=== PATIENT | female | born 1935 | race Caucasian/White ===

== ENCOUNTER → 2017-11-25 | Outpatient (CLI) | payer MEDICARE, BC ==
[~2017-11-25] MED LIST: ADULT LOW DOSE81 MG; ASPIRIN325; BACTRIM DS TAB1 EACH PO; CALCIUM; CALCIUM 600 +1 EAC1 PO; CATAPRES-TTS 20.2 MG TD; CATAPRES0.2 MG PO; CEFUROXIME500 MG PO; CELEXA 20 MG TA20 M1 PO; CENTRUM SILVER1 EAC1 PO; CENTRUM SILVER1 EAC4 PO; CLONIDINE PO; DILT-XR120 MG PO; EQL GLUCOSAMIN PO; EVISTA; EVISTA PO; FISH OIL 1,2001 EAC4; FLEET ENEMA118 ML RC; FLEX-A-MIN; FOLIC ACID 40400 MC1; FOLIC ACID 40400 MC1 PO; FOLIC ACID1 MG PO; HYDRALAZINE 10M10 MG PO; HYDROCHLOROTH12.5 M1 PO; IBUPROFEN 800800 MG PO; K-DUR10 ME1; LIPEX10 MG PO; LISINOPRIL20 MG PO; LMX 430 GM TRANSDERM; MAGNESIUM250 M1 PO; MELOXICAM7.5 MG; MELOXICAM7.5 MG PO; MIRALAX17 GM PO; MIRALAX255 GM PO; MOBIC; NAMENDA; NAMENDA 10 MG T10 MG PO; NAMENDA XR28 MG PO; NORCO 5-325 TA1 EACH PO; PAROXETINE HCL20 MG PO; PHENERGAN 25 MG25 M1 PO; POTASSIUM20 PO; PRADAXA150 MG PO; PRILOSEC40 MG PO; PROPOXY-N-APAP1 EACH PO; SENNA LAXATIVE25 MG PO; TEKTURNA HCT 31 EACH PO; VICODIN 5-5001 EACH PO; VITAMIN E1000 UNI1 PO; VITAMIN E400 UNIT PO; [UNRECOGNIZED DRUG - OTHER] PO
== END ==
LOC: M.ULTRA 10:46
DX: M17.12 Unilateral primary osteoarthritis, left knee (principal); M79.89 Other specified soft tissue disorders; L03.116 Cellulitis of left lower limb; R60.0 Localized edema

== ENCOUNTER 2017-12-27 11:45 | Inpatient (IN) | payer MEDICARE, BC ==
[~2017-12-27] VITALS: Ht 165.1 cm; Wt 56.2 kg
[~2017-12-27 11:45] MED LIST changes: -HYDRALAZINE 10M10 MG PO; -HYDROCHLOROTH12.5 M1 PO; -LMX 430 GM TRANSDERM
[2017-12-27 14:30] VITALS: BP 89/55; BP 98/51
[2017-12-27 15:07] LABS: HEMATOCRIT 25.3 % (37.0-47.0); HEMOGLOBIN 8.5 gm/dL (12.0-15.0); MCH 32.1 pg (26.0-34.0); MCHC 33.6 g/dL (28.0-37.0); MCV 95.4 fL (80.0-100.0); MPV 8.1 fl. (7.2-11.1); NUCLEATED RBCS 0 /100WBC; PLATELET COUNT* 214 thou/uL (150-400); RBC 2.65 mil/uL (4.20-5.00); RDW-CV 13.4 % (10.5-14.5); WBC 10.7 thou/uL (4.0-11.0)
[2017-12-27 15:15] LABS: CALCIUM 8.7 mg/dL (8.5-10.1); CREATININE 1.1 mg/dL (0.6-1.3); MAGNESIUM 2.3 mg/dL (1.8-2.4); POTASSIUM 3.8 mmol/L (3.5-5.1)
[2017-12-27 16:18] VITALS: BP 92/48
[2017-12-27 16:19] LABS: ABSOLUTE BASOPHILS 0.1 thou/uL (0.0-0.2); ABSOLUTE LYMPHOCYTES 0.3 thou/uL (0.8-5.3); ABSOLUTE MONOCYTES 0.7 thou/uL (0.0-1.2); ABSOLUTE NEUTROPHILS 9.5 thou/uL (1.6-8.1); PLATELET ESTIMATE ADEQUATE; TOXIC GRANULATION Occasional
--- NOTE | 2017-12-27 16:48 | EKG ---
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: : [id number] Requested By: Mario Vargas Order Number: [id number] Reading MD: Rolly Varma Measurements Intervals [place] Rate: 69 P: 67 MT: 155 QRS: -1 QRSD: 86 T: 42 QT: 400 QTc: 429 Interpretive Statements Sinus rhythm Left ventricular hypertrophy Compared to ECG 11/27/2016 20:32:51 Left ventricular hypertrophy now present Left-axis deviation no longer present Electronically Signed On 12-27-2017 16:48:38 CDT by Rolly Varma [email or web address] <ELECTRONICALLY SIGNED> By: Rolly Varma MD, [facility] 12/27/17 1648 1514 1514 Rolly Varma MD, [facility] /EPI
[2017-12-27 20:15] VITALS: BP 120/63
[2017-12-27 21:13] LABS: URINE BILIRUBIN NEGATIVE (Negative); URINE BLOOD NEGATIVE (Negative); URINE CLARITY CLEAR; URINE COLOR YELLOW; URINE GLUCOSE-RANDOM NEGATIVE (Negative); URINE KETONES NEGATIVE (Negative); URINE LEUKOCYTES-REFLEX NEGATIVE (Negative); URINE NITRITE-REFLEX NEGATIVE (Negative); URINE PROTEIN NEGATIVE (Negative); URINE SPECIFIC GRAVITY 1.025 (1.005-1.030); URINE UROBILINOGEN 0.2 E.U./dl (0.2-1.0)
[2017-12-28 00:12] VITALS: BP 154/81
[2017-12-28 04:12] VITALS: BP 170/82
[2017-12-28 07:45] VITALS: BP 172/79
[2017-12-28 12:00] VITALS: BP 127/88
[2017-12-28 13:19] LABS: % SATURATION 14 % (20-39); IRON 32 ug/dL (50-175)
[2017-12-28 17:09] VITALS: BP 179/98
[2017-12-28 20:00] VITALS: BP 168/63
[2017-12-29] VITALS: BP 176/69
[2017-12-29 04:18] VITALS: BP 129/74
[2017-12-29 08:00] VITALS: BP 146/86
[2017-12-29 16:00] VITALS: BP 199/112
[2017-12-29 17:10] VITALS: BP 186/107
[2017-12-29 20:00] VITALS: BP 176/99
[2017-12-30] VITALS (17 sets, daily range): BP systolic 130–213; BP diastolic 11–132
[2017-12-30 08:13] LABS: ABSOLUTE BASOPHILS 0.1 thou/uL (0.0-0.2); ABSOLUTE EOSINOPHILS 0.1 thou/uL (0.0-0.7); ABSOLUTE LYMPHOCYTES 0.4 thou/uL (0.8-5.3); ABSOLUTE MONOCYTES 0.6 thou/uL (0.0-1.2); ABSOLUTE NEUTROPHILS 14.4 thou/uL (1.6-8.1); BASOPHILS 0.4 %; EOSINOPHILS 0.8 %; HEMATOCRIT 33.4 % (37.0-47.0); LYMPHOCYTES 2.3 %; MCH 31.9 pg (26.0-34.0); MCHC 32.8 g/dL (28.0-37.0); MCV 97.1 fL (80.0-100.0); MONOCYTES 3.9 %; MPV 10.2 fl. (7.2-11.1); NUCLEATED RBCS 0 /100WBC; POLYS 92.6 %; RBC 3.44 mil/uL (4.20-5.00); RDW-CV 14.3 % (10.5-14.5); WBC 15.6 thou/uL (4.0-11.0)
[2017-12-30 08:24] LABS: PLATELET COUNT* 360 thou/uL (150-400)
[2017-12-30 08:32] LABS: ALBUMIN 3.4 g/dL (3.4-5.0); CALCIUM 9.1 mg/dL (8.5-10.1); CREATININE 0.6 mg/dL (0.6-1.3); MAGNESIUM 1.9 mg/dL (1.8-2.4); TOTAL PROTEIN 7.6 g/dL (6.4-8.2)
[2017-12-30 08:34] LABS: POTASSIUM 2.9 mmol/L (3.5-5.1)
[2017-12-30 10:43] LABS: URINE BLOOD 3+ (Negative); URINE CLARITY CLEAR; URINE COLOR YELLOW; URINE GLUCOSE-RANDOM 1+ (Negative); URINE KETONES 2+ (Negative); URINE PROTEIN 1+ (Negative); URINE UROBILINOGEN >= 8.0 E.U./dl (0.2-1.0)
[2017-12-30 10:46] LABS: URINE BILIRUBIN 1+ (Negative); URINE LEUKOCYTES-REFLEX 2+ (Negative); URINE NITRITE-REFLEX POSITIVE (Negative)
[2017-12-30 10:47] LABS: BACTERIA-REFLEX >30 Many /HPF (None Seen); ICTOTEST (BILI CONFIRMATORY) ND (Negative); MUCUS 4-6 Moderate strn/LPF (None Seen); SQUAMOUS 4-10 Moderate /LPF (0-3); URINE WBC-REFLEX >25 Many /HPF (0-5)
[2017-12-30 10:48] LABS: CASTS None Seen /LPF (None Seen); TRIPLE PHOSPHATE CRYSTALS 4-10 Moderate /LPF (None Seen)
[2017-12-30] MEDS ORDERED: PRADAXA150 MG PO (11:21)
[2017-12-30] MEDS ORDERED: HYDRALAZINE 10M10 MG PO (11:22)
[2017-12-30] MEDS ORDERED: LMX 430 GM TRANSDERM (11:26)
[2017-12-30] MEDS ORDERED: MIRALAX17 GM PO (11:28)
[2017-12-30] MEDS ORDERED: LISINOPRIL20 MG PO (11:29)
[2017-12-30] MEDS ORDERED: HYDROCHLOROTH12.5 M1 PO (11:29)
[2017-12-30 15:16] LABS: URINE BILIRUBIN NEGATIVE (Negative); URINE BLOOD TRACE (Negative); URINE CLARITY CLEAR; URINE COLOR YELLOW; URINE GLUCOSE-RANDOM 1+ (Negative); URINE KETONES 1+ (Negative); URINE LEUKOCYTES NEGATIVE (Negative); URINE NITRITE NEGATIVE (Negative); URINE PROTEIN 1+ (Negative); URINE UROBILINOGEN 0.2 E.U./dl (0.2-1.0)
[2017-12-30 15:30] LABS: AMORPHOUS URATES Moderate /LPF (None Seen); BACTERIA None Seen /HPF (None Seen); CASTS None Seen /LPF (None Seen); SQUAMOUS >10 Many /LPF (0-3); URINE RBC 0-2 Rare /HPF (0-2); URINE WBC None Seen /HPF (0-5)
[2017-12-30 18:56] LABS: HEMOGLOBIN 11.6 gm/dL (12.0-15.0); MCH 31.2 pg (26.0-34.0); MCHC 32.1 g/dL (28.0-37.0); MCV 97.2 fL (80.0-100.0); MPV 8.9 fl. (7.2-11.1); RBC 3.7 mil/uL (4.20-5.00); RDW-CV 14.1 % (10.5-14.5); WBC 13.1 thou/uL (4.0-11.0)
[2017-12-30 19:44] LABS: BE 2.5 mmol/L (-2 to +3); HCO3 24.1 mmol/L (22.0-26.0); PCO2 28.1 mmHg (35.0-45.0); pH 7.551 (7.340-7.450)
[2017-12-30 19:45] LABS: PO2 289.7 mmHg (75.0-100.0)
[2017-12-30 19:45] LABS: APTT 27.1 Seconds (25.0-31.3); PROTIME 10.5 Seconds (9.20-11.50)
[2017-12-31] VITALS (29 sets, daily range): BP systolic 104–200; BP diastolic 58–97
[2017-12-31 04:48] LABS: HEMOGLOBIN 10.8 gm/dL (12.0-15.0); MCH 31.6 pg (26.0-34.0); MCHC 32.7 g/dL (28.0-37.0); MCV 96.7 fL (80.0-100.0); MPV 8.3 fl. (7.2-11.1); RBC 3.42 mil/uL (4.20-5.00); RDW-CV 14.1 % (10.5-14.5); WBC 18.5 thou/uL (4.0-11.0)
[2017-12-31 05:43] LABS: ALBUMIN 3.3 g/dL (3.4-5.0); CALCIUM 9.5 mg/dL (8.5-10.1); CREATININE 0.9 mg/dL (0.6-1.3); MAGNESIUM 2.6 mg/dL (1.8-2.4); TOTAL BILIRUBIN 0.8 mg/dL (<0.1-1.0); TOTAL PROTEIN 6.8 g/dL (6.4-8.2)
[2017-12-31 06:10] LABS: POTASSIUM 7.7 mmol/L (3.5-5.1)
[2017-12-31 07:38] LABS: BE 1.8 mmol/L (-2 to +3); HCO3 25.6 mmol/L (22.0-26.0); PCO2 37.3 mmHg (35.0-45.0); pH 7.455 (7.340-7.450)
[2017-12-31 07:39] LABS: PO2 202.1 mmHg (75.0-100.0)
[2017-12-31 11:29] LABS: BE 2.2 mmol/L (-2 to +3); HCO3 27.5 mmol/L (22.0-26.0); PCO2 45.7 mmHg (35.0-45.0); PO2 92.8 mmHg (75.0-100.0); pH 7.397 (7.340-7.450)
[2018-01-01] VITALS (24 sets, daily range): BP systolic 110–178; BP diastolic 58–91
[2018-01-01 04:16] LABS: HEMATOCRIT 32.6 % (37.0-47.0); HEMOGLOBIN 10.4 gm/dL (12.0-15.0); MCH 31.2 pg (26.0-34.0); MCHC 31.8 g/dL (28.0-37.0); MCV 98.3 fL (80.0-100.0); MPV 8.3 fl. (7.2-11.1); NUCLEATED RBCS 0 /100WBC; PLATELET COUNT* 339 thou/uL (150-400); RBC 3.32 mil/uL (4.20-5.00); RDW-CV 14.6 % (10.5-14.5); WBC 31.5 thou/uL (4.0-11.0)
[2018-01-01 04:46] LABS: ALBUMIN 2.9 g/dL (3.4-5.0); CALCIUM 9.2 mg/dL (8.5-10.1); CREATININE 0.9 mg/dL (0.6-1.3); POTASSIUM 4.8 mmol/L (3.5-5.1); TOTAL BILIRUBIN 0.6 mg/dL (<0.1-1.0); TOTAL PROTEIN 6.8 g/dL (6.4-8.2)
[2018-01-01 05:32] LABS: ABSOLUTE LYMPHOCYTES 0.3 thou/uL (0.8-5.3); ABSOLUTE MONOCYTES 1.3 thou/uL (0.0-1.2); ABSOLUTE NEUTROPHILS 29.9 thou/uL (1.6-8.1); ANISOCYTOSIS 1+; PLATELET ESTIMATE ADEQUATE; POIKILOCYTOSIS 1+
--- NOTE | 2018-01-01 12:59 | 2DMMODE ---
[place] [address] 2 D/M-MODE ECHOCARDIOGRAM Name: CECILIA ALDANA Room: [address] IN [facility]#: [id number] Admission: 12/27/17 Attend Phys: Mario Vargas, Discharge: Date of : 37 Date of Service: 01/01/18 1259 Report #: [id number] THIS REPORT FOR: //name// APPROVED REPORT Study performed: 01/01/2018 10:54:33 EXAM: Comprehensive 2D, Doppler, and color-flow Echocardiogram Patient Location: In-Patient Room #: [facility] Status: routine BSA: 1.61 HR: 120 bpm BP: 118/74 mmHg Rhythm: NSR Other Information Study Quality: Good Indications Atrial Fibrillation 2D Dimensions LVEF(%): 78.77 (>50%) IVSd: 14.52 (7-11mm) LVOT Diam: 18.95 (18-24mm) LVDd: 37.90 mm PWd: 10.94 (7-11mm) Ascending Ao: 28.12 (22-36mm) LVDs: 20.21 (25-40mm) Aortic Root: 29.54 mm Dunn's LVEF: 78.77 % Aortic Valve AoV Peak Kurt.: 1.58 m/s AO Peak Gr.: 10.04 mmHg LVOT Max P.78 mmHg AO Mean Gr.: 5.66 mmHg LVOT Mean P.88 mmHg LVOT Max V: 1.48 m/s AO V2 VTI: 23.53 cm LVOT Mean V: 0.90 m/s YUSEF (VTI): 2.29 cm2 LVOT V1 VTI: 19.10 cm Mitral Valve E/A Ratio: 0.58 MV Decel. Time: 85.19 ms MV E Max Kurt.: 0.70 m/s MV PHT: 24.70 ms MVA (PHT): 8.91 cm2 [place] [address] 2 D/M-MODE ECHOCARDIOGRAM Name: CECILIA ALDANA Room: [address] IN ..#: [id number] Admission: 12/27/17 Attend Phys: Mario Vargas, Discharge: Date of : 37 Date of Service: 01/01/18 1259 Report #: [id number] TDI E/Lateral E': 7.78 E/Medial E': 8.75 Medial E' Kurt.: 0.08 m/s Lateral E' Kurt.: 0.09 m/s Pulmonary Valve PV Peak Kurt.: 1.30 m/s PV Peak Gr.: 6.75 mmHg Tricuspid Valve RAP Estimate: 5.00 mmHg TR Peak Gr.: 26.86 mmHg RVSP: 31.86 mmHg PA Pressure: 31.86 mmHg Left Ventricle The left ventricle is normal size. There is normal LV segmental wall motion. Moderate concentric left ventricular hypertrophy. Left ventricular systolic function is hyperdynamic. LVEF is >70%. Grade I - abnormal relaxation pattern. Right Ventricle The right ventricle is normal size. The right ventricular systolic function is normal. Atria The left atrium size is normal. The right atrium size is normal. Aortic Valve Mild aortic valve sclerosis. Mild aortic regurgitation. There is no aortic valvular stenosis. Mitral Valve The mitral valve is normal in structure. There is no mitral valve regurgitation noted. No evidence of mitral valve stenosis. Tricuspid Valve The tricuspid valve is normal in structure. Trace tricuspid regurgitation. Mild pulmonary hypertension. Pulmonic Valve The pulmonary valve is normal in structure. Mild pulmonic regurgitation. Great Vessels The aortic root is normal in size. [place] [address] 2 D/M-MODE ECHOCARDIOGRAM Name: CECILIA ALDANA [place] Room: [address] IN [facility]#: [id number] Admission: 12/27/17 Attend Phys: Mario Vargas, Discharge: Date of : 37 Date of Service: 01/01/18 1259 Report #: [id number] Pericardium There is no pericardial effusion. <Conclusion> The left ventricle is normal size. Moderate concentric left ventricular hypertrophy. Left ventricular systolic function is hyperdynamic. LVEF is >70%. Grade I - abnormal relaxation pattern. Mild aortic regurgitation. Trace tricuspid regurgitation. Mild pulmonary hypertension. Mild pulmonic regurgitation. IVC is dilated. <ELECTRONICALLY SIGNED> By: Albaro Emmanuel MD, FACC 01/01/18 1259 1259 1259 Albaro Emmanuel MD, FACC /INF
[2018-01-01 15:32] LABS: BE 1.2 mmol/L (-2 to +3); HCO3 25.5 mmol/L (22.0-26.0); PO2 102.4 mmHg (75.0-100.0); pH 7.433 (7.340-7.450)
--- NOTE | 2018-01-01 16:55 | CON ---
[address] [address] CONSULTATION Name: CECILIA ALDANA Room: [address] IN .R.#: [id number] Admission: 12/27/17 Attend Phys: Mario Vargas MD Discharge: Date of : 37 Report #: [id number] THIS REPORT FOR: //name// CC: Carlitos Condon DATE OF SERVICE: 12/31/2017 INDICATION: Chronic anticoagulation. HISTORY OF PRESENT ILLNESS: The patient is an 82-year-old white female who was admitted to the hospital with weakness and falls. She developed respiratory failure, was intubated and transferred to the ICU. She remains intubated in the ICU at this time. Further history is not available from her. She apparently has a history of atrial fibrillation that is paroxysmal in nature. She is chronically anticoagulated at home with Pradaxa. In the hospital, she was transiently on Eliquis prior to being intubated. She is not having any overt bleeding. She is having significant bruising noted. There is no history of bleeding abnormalities. PAST MEDICAL HISTORY: 1. Paroxysmal atrial fibrillation. 2. Hypertension. 3. Fecal impaction. 4. Degenerative joint disease. 5. MDD. 6. Diverticulosis. 7. Debility. 8. Dementia. 9. Right knee replacement. 10. 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 11. Hysterectomy. FAMILY HISTORY: Noncontributory. SOCIAL HISTORY: The patient is cared for by her family and has dementia. REVIEW OF SYSTEMS: Unobtainable. PHYSICAL EXAMINATION: VITAL SIGNS: Stable. Telemetry monitoring shows sinus tachycardia, rate of 124. Blood pressure is 154/88. GENERAL: This is a thin elderly female, who is intubated and unresponsive. HEAD: Normocephalic, atraumatic. NECK: Shows no obvious [place] [address] CONSULTATION Name: CECILIA ALDANA [place] Room: [address]#: [id number] Admission: 12/27/17 Attend Phys: Mario Vargas MD Discharge: Date of : 37 Report #: [id number] CHEST: Reveals lung cole to be relatively clear anteriorly. CARDIAC: Reveals tachycardic rate, regular rhythm. No gallop or murmur. ABDOMEN: Reveals normal bowel sounds. The abdomen is soft, nontender. EXTREMITIES: Shows no edema. SKIN: Warm and dry. LABORATORY DATA: A 12-lead EKG shows sinus tachycardia with no significant ST or T-wave abnormalities. IMPRESSION AND RECOMMENDATIONS: 1. Paroxysmal atrial fibrillation. Last episode of atrial fibrillation is not known. She has been in sinus rhythm during this hospitalization. At present, in light of her critical illness, I would be in favor of holding anticoagulation and supply her with Lovenox for deep venous thrombosis prophylaxis at bedtime. 2. Hypertension. Would give IV beta ayaan for rate control and blood pressure control while intubated. Could titrate as needed. 3. Acute respiratory failure, per Pulmonology and primary physicians. <ELECTRONICALLY SIGNED> By: Albaro Emmanuel MD, FACC 01/01/18 1655 1456 0411Albaro Emmanuel MD, FACC /nt
[2018-01-02] VITALS (23 sets, daily range): BP systolic 121–177; BP diastolic 60–88
[2018-01-02 03:28] LABS: HEMATOCRIT 30.2 % (37.0-47.0); HEMOGLOBIN 9.8 gm/dL (12.0-15.0); MCH 31.5 pg (26.0-34.0); MCHC 32.3 g/dL (28.0-37.0); MCV 97.6 fL (80.0-100.0); MPV 8.2 fl. (7.2-11.1); NUCLEATED RBCS 0 /100WBC; PLATELET COUNT* 332 thou/uL (150-400); RDW-CV 15.2 % (10.5-14.5); WBC 19.6 thou/uL (4.0-11.0)
[2018-01-02 03:38] LABS: ALBUMIN 2.8 g/dL (3.4-5.0); CALCIUM 8.5 mg/dL (8.5-10.1); CREATININE 0.7 mg/dL (0.6-1.3); TOTAL BILIRUBIN 0.7 mg/dL (<0.1-1.0); TOTAL PROTEIN 6.2 g/dL (6.4-8.2)
[2018-01-02 03:39] LABS: POTASSIUM 3.6 mmol/L (3.5-5.1)
[2018-01-02 03:57] LABS: ABSOLUTE LYMPHOCYTES 0.8 thou/uL (0.8-5.3); ABSOLUTE MONOCYTES 0.8 thou/uL (0.0-1.2)
[2018-01-02 03:58] LABS: ANISOCYTOSIS 1+; OVALOCYTES 1+; PLATELET ESTIMATE ADEQUATE; POLYCHROMASIA 1+
--- NOTE | 2018-01-02 09:16 | CON ---
[facility] [address] [place] [address] CONSULTATION Name: CECILIA ALDANA Room: [address] IN .R.#: [id number] Admission: 12/27/17 Attend Phys: Mario Vargas MD Discharge: Date of : 37 Report #: [id number] THIS REPORT FOR: //name// CC: Carlitos Curryaj DobbinsCondon DATE OF SERVICE: 12/31/2017 REFERRING PHYSICIAN: Mario Vargas M.D. CHIEF COMPLAINT: Respiratory failure. HISTORY OF PRESENT ILLNESS: The patient is an 82-year-old female who was a direct admission from the patient's primary physician's office. She presented to that office with frequent falls. Because of this, she was admitted to the hospital to be evaluated regarding her falls. During the course of her hospitalization within the last 12-24 hours, she had been having vomiting. It was felt that she had aspirated. She developed respiratory distress. Reviewing the records, it appears that she had had some vomiting and did indeed have respiratory distress. She was intubated electively and placed on a volume ventilator. Family not present at this time on the initial H and P performed. It was felt at that time that the family thought the patient will probably need long-term fdc placement in view of her history of dementia, debility, inability to care for herself at home and having the frequent falls. She had been on anticoagulation therapy for chronic atrial fibrillation. PAST MEDICAL HISTORY: Significant for knee replacement, dementia, debility, inability to care for self, chronic atrial fibrillation, degenerative joint disease, diverticulosis, history of fecal impaction. Malignant breast lesion removed several years ago, there is no evidence of recurrence. SOCIAL HISTORY: She apparently lives alone. She is a nonsmoker, does not use alcohol. REVIEW OF SYSTEMS: Not obtainable. FAMILY HISTORY: Not pertinent for the patient's age at this time. CURRENT MEDICATIONS: Consist of fentanyl drip, Zosyn, vancomycin, hydralazine for blood pressure control. Nicardipine, lisinopril, Eliquis, multiple vitamins, IV fluids. PHYSICAL EXAMINATION: [place] [address] CONSULTATION Name: CECILIA ALDANA Room: [address]#: [id number] Admission: 12/27/17 Attend Phys: Mario Vargas MD Discharge: Date of : 37 Report #: [id number] VITAL SIGNS: Blood pressure 134/71, respiratory rate 14. Pulse rate 126, sinus tachycardia per monitor. Temperature 99.8 degrees. GENERAL APPEARANCE: The patient is sedated. She is on fentanyl drip. HEENT: Head appears to be atraumatic. Face reveals significant bruising and swelling of her lower lip, possibly from a prior fall. EYES: Pupils are equal bilaterally, pinpoint nature. No response because of the marked constriction. No scleral icterus. Nose: Nasal passages are patent. Oral cavity reveals bruising of the lower lip. Also, the ET tube is orally placed. There are moist mucous membranes. Tongue does not appear to be traumatized. NECK: No adenopathy. CHEST: Diminished breath sounds. No wheezes or rhonchi. CARDIOVASCULAR: Sinus tachycardia. Distant heart tones. No appreciable murmurs or rubs. ABDOMEN: Soft. No organomegaly, no tenderness. EXTREMITIES: Multiple ecchymotic areas on her lower extremities, scar from her prior knee surgery on the left and on the right, NEUROLOGIC: The patient is sedated. No purposeful movement at this time. MEDICAL IMAGING STUDIES: Chest x-ray: ET tube above the dominik. No acute infiltrates. Hyperexpansion. There is some blunting of the costophrenic angle on the right side. Does not appear to have an infiltrate or fluid. Left lung field is clear. Electrolytes today: Sodium 137, potassium 7.7, chloride 105, CO2 of 27, BUN 33, creatinine is 0.9, EGFR 60. INR 1.0. Hemoglobin and hematocrit of 10.8 and 33, white count 18,500. Arterial blood gas obtained at 7:30 a.m. today revealed a pH 7.45, pCO2 of 37, pO2 of 202, bicarbonate 25 on a FiO2 of 45% rate of 14, 500 tidal volume, PEEP of 5. ASSESSMENT: 1. Acute respiratory insufficiency/failure. 2. Presumed aspiration. 3. Dementia. 4. History of breast carcinoma. 5. Hyperkalemia of undetermined etiology. Her potassiums have been in the low range up until today. Potassium supplement will need to be discontinued at this point, recommend repeating RECOMMENDATION: The patient will undergo scanning today from what I understand per the nursing staff, CT of the brain, chest, abdomen and pelvis. When she returns from the CT scanner, we will have sedation discontinued and attempt a T-tube trial and see how she does. Also, we will switch her sedation to a Versed drip and discontinue the propofol and fentanyl drip. We will also initiate fentanyl p.r.n. as needed for pain and discomfort. [address] [address] CONSULTATION Name: CECILIA ALDANA [place] Room: [address] IN [facility].#: [id number] Admission: 12/27/17 Attend Phys: Mario Vargas MD Discharge: Date of : 37 Report #: [id number] Follow up chest x-ray, labs in the a.m. and arterial blood gases. <ELECTRONICALLY SIGNED> By: Colten Monae MD 01/02/18915 0927 1216Almelanie Monae MD /nt
--- NOTE | 2018-01-02 11:07 | CON ---
[address] [address] CONSULTATION Name: CECILIA ALDANA Room: [address] IN M.R.#: [id number] Admission: 12/27/17 Attend Phys: Mario Vargas MD Discharge: Date of : 37 Report #: [id number] THIS REPORT FOR: //name// CC: Carlitos Curryaj DobbinsCondon DATE OF SERVICE: 01/01/2018 INFECTIOUS DISEASE CONSULTATION REASON FOR EVALUATION: Sepsis with respiratory failure secondary to pneumonitis, likely has a complicated urinary tract infection as well. HISTORY OF PRESENT ILLNESS: Chart reviewed, patient examined. This is an 82-year-old woman with history of dementia, who apparently had become weaker and weaker prior to her admission and culminated in falls. She was evaluated by PCP, who recommended admission, possible transition to care in a facility. She was initially admitted to the floor. Urinalysis was then collected initially, but now urine culture with growth of greater than 10-15 gram-negative rods. In the interim, he developed some nausea, emesis or perhaps aspirated. Worsening respiratory difficulties, did require emergent intubation. She was seen in Intensive Care Unit, maintained on ventilatory support. She is not particularly responsive at this point despite being off the sedation. She does have some degree of hemodynamic lability, has not had significant temperature elevation, though was up to 99.8 earlier today. Blood pressure has been generally adequate. In addition, had recent white count that went to 31.5. It is up from roughly 10.7 on admission. She is empirically started on piperacillin/tazobactam as well as cefepime. ALLERGIES: None known. CURRENT MEDICATIONS: Include fentanyl, metoprolol, Zosyn, labetalol, nicardipine, paroxetine, memantine, p.r.n. analgesics, antiemetics. PAST MEDICAL HISTORY: As described above, dementia, atrial fibrillation, previous history of knee replacement, hysterectomy. SOCIAL HISTORY: Nonsmoker, no ethanol. FAMILY HISTORY: Noncontributory. REVIEW OF SYSTEMS: Unobtainable. PHYSICAL EXAMINATION: GENERAL: She appears chronically ill. She is maintained [place] [address] CONSULTATION Name: CECILIA ALDANA Room: [address]#: [id number] Admission: 12/27/17 Attend Phys: Mario Vargas MD Discharge: Date of : 37 Report #: [id number] contused area. Apparently, she bit her lip. She is not particularly responsive, does appear undernourished significant degree. VITAL SIGNS: T-max is 99.8, more recently 98.9; pulse 119; respirations 30; blood pressure 121/76. SKIN: Warm, dry, no rashes. HEENT: ET tube in place. NECK: Somewhat less than supple. LUNGS: Scattered coarse breath sounds. HEART: Tachycardic, irregular. I do not appreciate a murmur. ABDOMEN: Soft. There are no peritoneal signs. GENITOURINARY: Deferred. RECTAL: Deferred. LABORATORY DATA: Echo: EF of 70%, mild aortic regurgitation. Urine culture with greater than 10-15 gram-negative rods. Chest x-ray: No evidence of pneumonitis. Electrolytes: Sodium 142, potassium 4.8, chloride 108, bicarb is 25, BUN and creatinine 41 and 0.9, albumin 2.9, total protein 6.8, estimated GFR of 60. LFTs unremarkable. CBC: White count of 31.5, H and H 10.4 and 32.6, platelets of 339. Did have monocytosis and lymphocytopenia. CRP 19.6. Most recent ABG, pH 7.397, pCO2 of 45.7, pO2 92.8. That was on 25%. CT chest: No acute processes. CT abdomen and pelvis: No acute findings, severe arthritic changes. ASSESSMENT: Probably urinary tract infection, may be early pneumonitis secondary to aspiration. The patient clearly has progressively weakened. White count is certainly not likely a reactive process. I think it is reasonable to continue empiric antimicrobial therapy. We will adjust the regimen, await culture results. Blood cultures collected today. She is certainly at risk for nosocomial related infectious complications. Overall, her prognosis appears quite guarded. <ELECTRONICALLY SIGNED> By: Shahbaz Yeager MD 01/02/18 1107 1444 [id number] Yeager MD /nt
[2018-01-03] VITALS (20 sets, daily range): BP systolic 129–186; BP diastolic 69–111
[2018-01-03 03:50] LABS: HEMATOCRIT 31.4 % (37.0-47.0); MCH 31.4 pg (26.0-34.0); MCHC 31.8 g/dL (28.0-37.0); MCV 98.6 fL (80.0-100.0); MPV 8.1 fl. (7.2-11.1); NUCLEATED RBCS 0 /100WBC; PLATELET COUNT* 289 thou/uL (150-400); RBC 3.19 mil/uL (4.20-5.00); WBC 12.8 thou/uL (4.0-11.0)
[2018-01-03 04:02] LABS: PREALBUMIN 15.2 mg/dL (18.0-35.7)
[2018-01-03 04:03] LABS: ALBUMIN 2.5 g/dL (3.4-5.0); CALCIUM 8.7 mg/dL (8.5-10.1); CREATININE 0.5 mg/dL (0.6-1.3); POTASSIUM 3.5 mmol/L (3.5-5.1); TOTAL BILIRUBIN 0.6 mg/dL (<0.1-1.0); TOTAL PROTEIN 5.9 g/dL (6.4-8.2)
[2018-01-03 04:07] LABS: ABSOLUTE EOSINOPHILS 0.1 thou/uL (0.0-0.7); ABSOLUTE MONOCYTES 0.9 thou/uL (0.0-1.2); ABSOLUTE NEUTROPHILS 10.8 thou/uL (1.6-8.1)
[2018-01-03 04:08] LABS: ANISOCYTOSIS 1+; OVALOCYTES 1+; PLATELET ESTIMATE ADEQUATE; TOXIC GRANULATION Occasional
[2018-01-04] VITALS: BP 149/90
[2018-01-04 02:00] VITALS: BP 190/105
[2018-01-04 04:00] VITALS: BP 177/101
[2018-01-04 05:37] LABS: ABSOLUTE EOSINOPHILS 0.2 thou/uL (0.0-0.7); ABSOLUTE LYMPHOCYTES 0.7 thou/uL (0.8-5.3); ABSOLUTE MONOCYTES 0.7 thou/uL (0.0-1.2); ABSOLUTE NEUTROPHILS 11.8 thou/uL (1.6-8.1); BASOPHILS 0.1 %; EOSINOPHILS 1.1 %; HEMATOCRIT 34.1 % (37.0-47.0); LYMPHOCYTES 5.4 %; MCH 31.3 pg (26.0-34.0); MCHC 32.2 g/dL (28.0-37.0); MCV 97.1 fL (80.0-100.0); MONOCYTES 4.9 %; MPV 7.7 fl. (7.2-11.1); NUCLEATED RBCS 0 /100WBC; PLATELET COUNT* 350 thou/uL (150-400); POLYS 88.5 %; RBC 3.51 mil/uL (4.20-5.00); RDW-CV 14.6 % (10.5-14.5); WBC 13.3 thou/uL (4.0-11.0)
[2018-01-04 06:10] LABS: ALBUMIN 2.6 g/dL (3.4-5.0); CALCIUM 8.3 mg/dL (8.5-10.1); CREATININE 0.4 mg/dL (0.6-1.3); POTASSIUM 3.4 mmol/L (3.5-5.1); TOTAL BILIRUBIN 0.7 mg/dL (<0.1-1.0); TOTAL PROTEIN 6.1 g/dL (6.4-8.2)
[2018-01-04 08:00] VITALS: BP 126/82
[2018-01-04 16:33] VITALS: BP 111/78
[2018-01-04 20:00] VITALS: BP 124/82
[2018-01-05 04:00] VITALS: BP 151/88
[2018-01-05 15:50] VITALS: BP 165/86
[2018-01-06 04:01] LABS: HEMATOCRIT 29.1 % (37.0-47.0); HEMOGLOBIN 9.6 gm/dL (12.0-15.0); MCHC 33.1 g/dL (28.0-37.0); MCV 96.8 fL (80.0-100.0); MPV 8.1 fl. (7.2-11.1); NUCLEATED RBCS 0 /100WBC; PLATELET COUNT* 347 thou/uL (150-400); RDW-CV 14.7 % (10.5-14.5); WBC 10.3 thou/uL (4.0-11.0)
[2018-01-06 04:49] LABS: ALBUMIN 2.5 g/dL (3.4-5.0); CALCIUM 8.1 mg/dL (8.5-10.1); CREATININE 0.4 mg/dL (0.6-1.3); POTASSIUM 3.6 mmol/L (3.5-5.1); TOTAL BILIRUBIN 0.5 mg/dL (<0.1-1.0); TOTAL PROTEIN 5.2 g/dL (6.4-8.2)
[2018-01-06 05:49] LABS: ABSOLUTE EOSINOPHILS 0.3 thou/uL (0.0-0.7); ABSOLUTE LYMPHOCYTES 0.9 thou/uL (0.8-5.3); ABSOLUTE MONOCYTES 0.2 thou/uL (0.0-1.2); ABSOLUTE NEUTROPHILS 8.9 thou/uL (1.6-8.1); ANISOCYTOSIS 1+; PLATELET ESTIMATE ADEQUATE; POIKILOCYTOSIS 1+
[2018-01-06 07:35] VITALS: BP 172/85
[2018-01-06 16:30] VITALS: BP 120/58
[2018-01-06 19:55] VITALS: BP 168/83
[2018-01-07 07:55] VITALS: BP 153/79
[2018-01-07 13:00] VITALS: BP 154/98
--- NOTE | 2018-01-08 11:36 | CON ---
[address] [address] CONSULTATION Name: CECILIA ALDANA Room: [address]#: [id number] Admission: 12/27/17 Attend Phys: Mario Vargas MD Discharge: 01/07/18 Date of : 37 Report #: [id number] THIS REPORT FOR: //name// CC: Carlitos Condon DATE OF SERVICE: 12/31/2017 REQUESTING PHYSICIAN: ____ REASON FOR CONSULTATION: Hyperkalemia. HISTORY OF PRESENT ILLNESS: The patient is an 82-year-old female with medical history significant for dementia, debility, and degenerative joint disease, was admitted to the hospital with complaints of worsening falls and weakness. She was in orthopedic service. She apparently yesterday was ready to be discharged, but then her potassium was low at 2.9. She was given 100 mEq of potassium chloride IV and her potassium went up to 7.7 and down to 7.2 and I was consulted. Her BUN and creatinine are normal. PAST MEDICAL HISTORY: Significant for above-mentioned problems. She also has history of hypertension. FAMILY HISTORY: Noncontributory. SOCIAL HISTORY: She is a [facility] resident. REVIEW OF SYSTEMS: The patient is intubated. PHYSICAL EXAMINATION: GENERAL: She is intubated, but awake. VITAL SIGNS: Blood pressure 134/71, heart rate 120, and respiratory rate is 25. Afebrile. HEENT: Pupils round. NECK: Supple. LUNGS: With few coarse breath sounds. CARDIOVASCULAR: Regular rate, tachycardia. ABDOMEN: Soft. LOWER EXTREMITIES: No edema. LABORATORY REPORT: As mentioned earlier. ASSESSMENT: An 82-year-old female with respiratory failure, dementia, developed [address] [address] CONSULTATION Name: CECILIA ALDANA Room: [address]#: [id number] Admission: 12/27/17 Attend Phys: Mario Vargas MD Discharge: 01/07/18 Date of : 37 Report #: [id number] hyperkalemia after she was given 100 mEq of potassium chloride IV to replace her low potassium. Her potassium went up. So her hyperkalemia is iatrogenic. The EKG now looks alright. I do not think she has any ____ hyperkalemia now. We will be rechecking her potassium. Her BUN and creatinine are normal. ____ normal renal function, she should be able to correct that fairly easily. I will follow her potassium level. Thank you very much for asking my opinion on hyperkalemia. <ELECTRONICALLY SIGNED> By: Jony Crain MD 01/08/18 1136 1118 [id number] Crain MD /nt
== END 2018-01-07 13:45 | DRG 871 ==
LOC: M.2W 11:45 → M.ORTHSURG 13:42 → M.2W 13:42 → M.ORTHSURG 12-29 15:34 → M.ICU 12-30 17:34 → M.2W 01-04 01:31 → M.3W 01-05 13:01
PROVIDERS: Internal Medicine; Internal Medicine Pulmonary Disease; ADMIT Internal Medicine
DX: A41.9 Sepsis, unspecified organism (principal); G93.40 Encephalopathy, unspecified; J69.0 Pneumonitis due to inhalation of food and vomit; J96.00 Acute respiratory failure, unspecified whether with hypoxia or hypercapnia; E44.0 Moderate protein-calorie malnutrition; N39.0 Urinary tract infection, site not specified; F44.4 Conversion disorder with motor symptom or deficit; F03.90 Unspecified dementia, unspecified severity, without behavioral disturbance, psychotic disturbance, mood disturbance, and anxiety; I48.2 Chronic atrial fibrillation; E87.5 Hyperkalemia; I10 Essential (primary) hypertension; I48.0 Paroxysmal atrial fibrillation; R65.20 Severe sepsis without septic shock; K57.90 Diverticulosis of intestine, part unspecified, without perforation or abscess without bleeding; I87.8 Other specified disorders of veins; R33.9 Retention of urine, unspecified; B96.1 Klebsiella pneumoniae [K. pneumoniae] as the cause of diseases classified elsewhere; D63.8 Anemia in other chronic diseases classified elsewhere; F32.9 Major depressive disorder, single episode, unspecified; Z96.651 Presence of right artificial knee joint; R29.6 Repeated falls; M17.11 Unilateral primary osteoarthritis, right knee; S60.222A Contusion of left hand, initial encounter; W18.30XA Fall on same level, unspecified, initial encounter; Y93.89 Activity, other specified; Y92.89 Other specified places as the place of occurrence of the external cause; Y99.8 Other external cause status; Z90.710 Acquired absence of both cervix and uterus; Z85.3 Personal history of malignant neoplasm of breast; Z79.01 Long term (current) use of anticoagulants; Z79.899 Other long term (current) drug therapy; Z68.20 Body mass index [BMI] 20.0-20.9, adult